=== PATIENT | male | born 1990 | race Caucasian/White ===

== ENCOUNTER 2024-08-14 18:47 | Emergency (ER) | payer SELFPAY ==
[2024-08-14] VITALS (11 sets, daily range): BP systolic 125–161; BP diastolic 58–80; PULSE 99–122; RESP 12–21; TEMP 36.9–37.1; O2SAT 94–99; BMI 30.8
--- NOTE | 2024-08-14 19:16 | ED.SKABFB ---
HPI - Skin/Abscess/Foreign Bdy General Chief complaint: Skin/Abscess/Foreign Body Stated complaint: celulitis rt leg Time Seen by Provider: 08/14/24 19:15 Source: patient Mode of arrival: Ambulatory Limitations: no limitations History of Present Illness HPI narrative: 34-year-old male complains of right foreleg lateral swelling, increasing for the last 2 days, was working outside near bushes, not sure if he might have been scratched or punctured by a benavides, or if he might have gotten a spider/insect bite. Small sore spot with increasing redness lateral foreleg. Some swelling down to the ankle. No ankle twist or fall injury recalled. No knee pain. No chest pain or shortness of breath. He has not feel feverish. He is not taking any current antibiotics. He has a history of penicillin allergy, has taken Keflex in the past before without problems. Related Data Home Medications Medication Instructions Recorded Confirmed [ICY HOT] topical PRN ##0 04/06/12 naproxen sodium 220 mg tablet 220 mg PO PRN ##0 04/06/12 Previous Rx's Medication Instructions Recorded hydrocodone 7.5 mg-acetaminophen 1 tab PO PRN ##20 04/06/12 325 mg tablet ([place]) cephalexin 500 mg capsule 500 mg PO QID 7 days #28 caps 08/14/24 Allergies Allergy/AdvReac Type Severity Reaction Status Date / Time PENICILLIN Allergy Mild NAUSEA/VOMI Uncoded 07/16/17 11:53 TING Patient History Social History Smoking Status: Current every day smoker Smoking Status: Current every day smoker tobacco type: cigarettes and vaping Exam Narrative Exam Narrative: GENERAL: Well-developed patient, in mild distress. HEAD: Atraumatic. Normocephalic. EYES: Pupils equal round and reactive. Extraocular motions intact. No scleral icterus. No injection or drainage. ENT: Nose without bleeding, purulent drainage. Throat without erythema, tonsillar hypertrophy or exudate. Airway patent. NECK: Trachea midline. Non tender CARDIOVASCULAR: Fast rate and regular rhythm without murmurs, gallops, or rubs. RESPIRATORY: Clear to auscultation. Breath sounds equal bilaterally. No wheezes, rales, or rhonchi. GASTROINTESTINAL: Abdomen soft, non-tender, nondistended. EXTREMITIES: Edema and redness and warmth to the lateral right foreleg proximal to pass the ankle joint line, can move his ankle. Can plantar flex and dorsiflex at the ankle. Nonbloody. Non fluctuant, central small eschar without obvious expressible fluid. BACK: Nontender without deformity or crepitance. No flank tenderness. NEURO: AOx3. Motor exam grossly nonfocal SKIN: No rash or erythema of visible areas Initial Vital Signs Initial Vital Signs: Vital Signs Temperature 98.7 F 08/14/24 18:49 Pulse Rate 122 H 08/14/24 18:49 Respiratory Rate 18 08/14/24 18:49 Blood Pressure 142/80 H 08/14/24 18:49 Pulse Oximetry 97 08/14/24 18:49 Oxygen Delivery Method Room Air 08/14/24 18:49 Course Orders Ordered: ED Orders 08/14/24 19:20 US extremity nonvasc lower rt Stat 08/14/24 19:30 CBC Auto Diff [Complete Blood Count AUTO DIFF] Stat CMP [Comprehensive Metabolic Panel] Stat Lactate (Lactic Acid) Stat 08/14/24 19:35 Blood Culture Stat Discontinued Medications Sodium Chloride (Normal Saline 0.9%) 1,000 mls @ 1,000 mls/hr IV BOLUS ONE Stop: 08/14/24 20:14 Last Infusion: 08/14/24 20:29 Dose: Infused Documented By: Admin: 08/14/24 19:35 Dose: 1,000 mls/hr Documented By: FRANK Ceftriaxone Sodium 1,000 mg/ (Sodium Chloride) 100 mls @ 200 mls/hr IV NOW ONE Stop: 08/14/24 19:17 Last Infusion: 08/14/24 20:28 Dose: Infused Documented By: Admin: 08/14/24 19:38 Dose: 200 mls/hr Documented By: FRANK Ketorolac Tromethamine (Ketorolac 30 Mg/Ml Vial) 15 mg IV NOW ONE Stop: 08/14/24 21:04 Last Admin: 08/14/24 21:13 Dose: 15 mg Documented By: FRANK Vital Signs Vital signs: Vital Signs - 8 hr 08/14/24 18:49 08/14/24 19:04 08/14/24 19:30 Temperature 98.7 F Pulse Rate 122 H 113 H Respiratory Rate 18 12 14 Blood Pressure 142/80 H Pulse Oximetry 97 Oxygen Delivery Method Room Air 08/14/24 19:36 08/14/24 19:36 08/14/24 20:00 Temperature Pulse Rate 109 H 107 H Respiratory Rate 16 21 Blood Pressure 141/79 H Pulse Oximetry Oxygen Delivery Method 08/14/24 20:00 08/14/24 20:30 08/14/24 20:30 Temperature Pulse Rate 111 H Respiratory Rate Blood Pressure 149/75 H 161/77 H Pulse Oximetry Oxygen Delivery Method 08/14/24 21:00 08/14/24 21:00 08/14/24 21:18 Temperature 98.5 F Pulse Rate 108 H Respiratory Rate Blood Pressure 155/73 H Pulse Oximetry 96 Oxygen Delivery Method 08/14/24 21:30 08/14/24 21:30 08/14/24 22:00 Temperature Pulse Rate 99 H Respiratory Rate Blood Pressure 134/60 136/63 Pulse Oximetry 98 Oxygen Delivery Method 08/14/24 22:00 08/14/24 22:30 08/14/24 22:30 Temperature Pulse Rate 99 H 99 H Respiratory Rate 18 Blood Pressure 125/58 L Pulse Oximetry 99 94 Oxygen Delivery Method MDM - Skin/Abscess/Foreign Bdy Lab Data Attestation: I reviewed the patient's lab results. Lab results narrative: White blood cell count 08880, hemoglobin 13.9. Glucose 135. Normal renal function. Normal electrolytes. Lactate 1.5 normal. 08/14/24 19:30 08/14/24 19:30 Labs: Lab Results 08/14/24 Range/Units 19:30 WBC 11.4 H (4.5-11.0) X10^3/uL RBC 4.75 (4.5-5.9) X10^6/uL Hgb 13.9 (13.5-17.5) g/dL Hct 41.4 (41-53) % MCV 87.3 (80-100) fL MCH 29.4 (26-34) PG MCHC 33.6 (30-36) % RDW 13.8 (11.6-14.8) % Plt Count 321 (150-400) X10^3/uL Neut % (Auto) 65.9 (50-75) % Lymph % (Auto) 18.9 L (25-40) % [place] % (Auto) 11.8 (3-14) % Eos % (Auto) 2.7 (2-4) % Baso % (Auto) 0.7 (0-2) % Neut # (Auto) 7500 H (4196-9147) /uL Lymph # (Auto) 2200 (7628-3533) /uL [place] # (Auto) 1300 H (0-900) /uL Eos # (Auto) 300 (0-450) /uL Baso # (Auto) 100 (0-100) /uL Sodium 139 (137-145) mmol/L Potassium 3.8 (3.4-5.1) mmol/L Chloride 102 (98-107) mmol/L Carbon Dioxide 28 (22-32) mmol/L BUN 12 (9-20) mg/dL Creatinine 0.96 (0.66-1.25) mg/dL Estimated GFR > 60 (>60) mL/min BUN/Creatinine Ratio 12.5 (6-22) Glucose 135 H (70-99) mg/dL Lactate 1.5 (0.7-2.1) mmol/L Calcium 9.2 (8.4-10.2) mg/dL Total Bilirubin 0.8 (0.2-1.3) mg/dL AST 22 (17-59) IU/L ALT 20 (<50) IU/L Alkaline Phosphatase 74 (38-126) U/L Total Protein 7.7 (6.3-8.2) g/dL Albumin 4.5 (3.5-5.0) g/dL Globulin 3.2 (1.7-4.1) g/dL Albumin/Globulin Ratio 1.4 (1.0-2.8) Imaging Data Ultrasound nonvascular lower extremity: Radiologist's Impression: Close Extremity Ultrasound (Signed) Koby Parker - 08/14/[address] [address] Ultrasound Report Signed Patient: Stephan Galindo MR#: [id number] : 1990 Acct:[id number] Age/Sex: 34 / M Date of Service: 08/14/24 Loc: ED Accession Number: [id number] Procedure: US extremity nonvasc lower rt Ordering Provider: Jamie Wagner MD PROCEDURE: US EXTREMITY NONVASC LOWER RT INDICATIONS: Pain red, evaluate for drainable fluid collection TECHNIQUE: Real-time scanning was performed of the right lower leg, with image documentation. COMPARISON: None. FINDINGS: Subcutaneous the mass and at the right lateral proximal calf in the area of the skin wound. There is a subcutaneous hypoechoic area measuring 0.3 x 0.3 x 0.2 cm that tracks to the skin surface. IMPRESSION: Subcutaneous edema at the area of concern with a small 0.3 cm fluid collection with tract to the skin surface. No drainable fluid collection is seen. Approved by: Koby Parker M.D. on 08/14/2024 at 22:29 MDM Narrative Medical decision making narrative: Right lateral leg redness and swelling with central small punctum non fluctuant, redness extends down through to the ankle area from the proximal aspect, can move knee and ankle. Sinus tachycardia noted. Possible SIRS. Labs sent including lactate. IV fluid bolus, blood cultures. Patient has had penicillin allergy but Keflex tolerated in the past. IV ceftriaxone ordered. Ultrasound to look for drainable fluid collection. Ultrasound shows no significant drainable fluid collection, does show skin edema consistent with cellulitis. See radiology report. White blood cell count 74433, other labs unremarkable, normal renal function, normal liver function, normal electrolytes. Lactate 1.5 not elevated. Heart rate improved, normalized in the 90s. Normotensive. IV ceftriaxone given for cellulitis, no drainable fluid, improvement in heart rate after fluids, normotensive blood pressure stable. We will treat further for cellulitis as an outpatient for now. Patient agreeable. We will send prescription for cephalexin antibiotic to his [place] pharmacy. Instructed to take antibiotics as directed, recheck at [facility] on Friday. Return precautions discussed. Discharged home, improved. Discharge Plan Departure Patient Disposition: Home Clinical Impression: Cellulitis Instructions: DI for Cellulitis -- Adult Activity Restrictions/Additional Instructions: Lower extremity redness, possible bug bite or scratch from plant wound recent days, no fever on triage, initial fast heart rate. Labs were sent, not consistent with severe sepsis infection at this time. IV antibiotics ceftriaxone was initiated however for treatment of cellulitis. Ultrasound performed did not show any drainable abscess or fluid collection at this time. Heart rate improved and normalized. Blood pressure remained stable. Take Tylenol and or Motrin as needed for fever or pain control. Further treatment at this time as an outpatient with cephalexin antibiotic, prescription sent to your pharmacy. Take antibiotics as prescribed. Wound check advised Friday morning. Prescriptions: New cephalexin 500 mg capsule 500 mg PO QID 7 Days Qty: 28 0RF No Action naproxen sodium 220 MG tablet 220 mg PO PRN Qty: 0 [ICY HOT] Topical PRN Qty: 0 hydrocodone-acetaminophen [[place]] 7.5 MG/325 MG tablet 1 tab PO PRN Qty: 20 0RF Referrals: Moose Pacheco MD [Primary Care Provider] - Stand Alone Forms: Patient Portal/API/Survey
--- NOTE | 2024-08-14 19:20 | DI.US.S_ITS ---
PROCEDURE: US EXTREMITY NONVASC LOWER RT INDICATIONS: Pain red, evaluate for drainable fluid collection TECHNIQUE: Real-time scanning was performed of the right lower leg, with image documentation. COMPARISON: None. FINDINGS: Subcutaneous the mass and at the right lateral proximal calf in the area of the skin wound. There is a subcutaneous hypoechoic area measuring 0.3 x 0.3 x 0.2 cm that tracks to the skin surface. IMPRESSION: Subcutaneous edema at the area of concern with a small 0.3 cm fluid collection with tract to the skin surface. No drainable fluid collection is seen. Approved by: Koby Parker M.D. on 08/14/2024 at 22:29
[2024-08-14] MEDS: SODIUM CHLORIDE 0.9% 1,000 ML 1000 ML IV (19:35)
[2024-08-14] MEDS: cefTRIAXone 1,000 MG in SODIUM CHLORIDE 0.9% 100 ML 200 MG IV (19:38)
[2024-08-14 19:41] LABS: Add Manual Diff / Slide Review NO; Basophils Absolute Auto 100 /uL (0-100); Basophils Percent Auto 0.7 % (0-2); Eosinophils Absolute Auto 300 /uL (0-450); Eosinophils Percent Auto 2.7 % (2-4); Hematocrit 41.4 % (41-53); Hemoglobin 13.9 g/dL (13.5-17.5); Lymphocytes Absolute Auto 2200 /uL (1100-4500); Lymphocytes Percent Auto 18.9 % (25-40); Mean Corpuscular HGB Conc 33.6 % (30-36); Mean Corpuscular Hemoglobin 29.4 PG (26-34); Mean Corpuscular Volume 87.3 fL (80-100); Monocytes Absolute Auto 1300 /uL (0-900); Monocytes Percent Auto 11.8 % (3-14); Neutrophils Absolute Auto 7500 /uL (1500-7000); Neutrophils Percent Auto 65.9 % (50-75); Platelet Count 321 X10^3/uL (150-400); Red Blood Cell Count 4.75 X10^6/uL (4.5-5.9); Red Cell Distribution Width 13.8 % (11.6-14.8); White Blood Cell Count 11.4 X10^3/uL (4.5-11.0)
[2024-08-14 19:49] LABS: Alanine Aminotransferase 20 IU/L (<50); Albumin 4.5 g/dL (3.5-5.0); Albumin Globulin Ratio 1.4 (1.0-2.8); Alkaline Phosphatase 74 U/L (38-126); Aspartate Aminotransferase 22 IU/L (17-59); BUN Creatinine Ratio 12.5 (6-22); Bilirubin Total 0.8 mg/dL (0.2-1.3); Blood Urea Nitrogen 12 mg/dL (9-20); Calcium 9.2 mg/dL (8.4-10.2); Carbon Dioxide 28 mmol/L (22-32); Chloride 102 mmol/L (98-107); Estimated Glomerular Filt Rate > 60 mL/min (>60); Globulin 3.2 g/dL (1.7-4.1); Glucose 135 mg/dL (70-99); HEMOLYSIS < 15 (0-50); Potassium 3.8 mmol/L (3.4-5.1); Sodium 139 mmol/L (137-145); Total Protein 7.7 g/dL (6.3-8.2)
[2024-08-14 19:50] LABS: Lactate (Lactic Acid) 1.5 mmol/L (0.7-2.1)
[2024-08-14] MEDS: KETOROLAC 30 MG/ML VIAL 15 MG IV (21:13)
== END 2024-08-14 22:56 | disposition home or self-care (01) ==
PROVIDERS: Emergency Provider Emergency Medicine; PCP Family Medicine
DX: L03.115 Cellulitis of right lower limb (principal); R00.0 Tachycardia, unspecified
CPT/HCPCS: 36415; 76882; 80053; 83605; 85025; 87040; 96365; 96375; 99284; J0696; J1885